=== PATIENT | female | born 1990 | race Caucasian/White ===

== ENCOUNTER 2018-08-31 14:19 | Emergency (ER) | payer OTHER ==
[~2018-08-31] VITALS: Ht 157.5 cm; Wt 54.0 kg
[~2018-08-31 14:19] MED LIST: PRENATAL TABLE1 EACH PO
[2018-08-31] MEDS ORDERED: ZITHROMAX500 MG PO (18:58)
[2018-08-31] MEDS ORDERED: FLONASE ALLERG9.9 ML NASAL (18:58)
== END 2018-08-31 19:13 | disposition home or self-care (01) ==
LOC: ER 14:19
DX: J06.9 Acute upper respiratory infection, unspecified (principal); J32.8 Other chronic sinusitis

== ENCOUNTER 2018-10-08 14:54 | Inpatient (IN) | payer OTHER ==
[~2018-10-08] VITALS: Ht 157.5 cm; Wt 57.2 kg
[~2018-10-08 14:54] MED LIST changes: +FLONASE ALLERG9.9 ML NASAL; +ZITHROMAX500 MG PO
[2018-10-09] MEDS ORDERED: PRENATAL TABLE1 EAC4 PO (08:12)
== END 2018-10-09 15:26 | disposition home or self-care (01) | DRG 833 ==
LOC: LDR 14:54
PROVIDERS: ADMIT Obstetrics & Gynecology
PROC: 4A1HXCZ Monitoring of Products of Conception, Cardiac Rate, External Approach (ICD-10-PCS; principal; 2018-10-08)
DX: O47.1 False labor at or after 37 completed weeks of gestation (principal); Z34.03 Encounter for supervision of normal first pregnancy, third trimester

== ENCOUNTER 2018-10-12 09:12 | Outpatient (CLI) | payer OTHER ==
[~2018-10-12 09:12] MED LIST changes: +PRENATAL TABLE1 EAC4 PO
== END 2018-10-12 14:39 | disposition home or self-care (01) ==
LOC: OBS/DEL 09:12
DX: O47.1 False labor at or after 37 completed weeks of gestation (principal); Z34.83 Encounter for supervision of other normal pregnancy, third trimester

== ENCOUNTER 2018-10-13 15:17 | Inpatient (IN) | payer OTHER ==
[~2018-10-13] VITALS: Ht 157.5 cm; Wt 57.6 kg
== END 2018-10-15 13:01 | disposition home or self-care (01) | DRG 807 ==
LOC: LDR 15:17 → OB/GYN 15:17
PROVIDERS: ADMIT Obstetrics & Gynecology
PROC: 10E0XZZ Delivery of Products of Conception, External Approach (ICD-10-PCS; principal; 2018-10-13)
PROC: 10907ZC Drainage of Amniotic Fluid, Therapeutic from Products of Conception, Via Natural or Artificial Opening (ICD-10-PCS; 2018-10-13)
PROC: 3E033VJ Introduction of Other Hormone into Peripheral Vein, Percutaneous Approach (ICD-10-PCS; 2018-10-13)
PROC: 4A1HXCZ Monitoring of Products of Conception, Cardiac Rate, External Approach (ICD-10-PCS; 2018-10-13)
DX: O80 Encounter for full-term uncomplicated delivery (principal); Z37.0 Single live birth; Z3A.38 38 weeks gestation of pregnancy